=== PATIENT | female | born 1970 | race Caucasian/White ===

== ENCOUNTER → 2017-05-23 | Outpatient (CLI) | payer BC ==
--- NOTE | 2017-05-28 17:41 | REPMRS ---
Patient History The patient states she had a clinical breast exam in April 2017. Patient had first child at age 36. Family history of breast cancer in maternal grandmother at age 50 or over and endometrial cancer in paternal grandmother at age 50 or over. Digital Mammo Screening Bilat: May 23, 2017 - Exam #: [id number] Bilateral CC and MLO view(s) were taken. Technologist: Ale Marquez, Technologist Prior study comparison: September 2015, digital bilateral screening mammo, performed at [facility]. FINDINGS: There are scattered fibroglandular densities. There has been no change in the appearance of the mammogram from the prior studies. There is a moderate amount of residual fibroglandular tissue which is fairly symmetric. There is no interval development of dominant mass, architectural distortion, or clustered microcalcification suggestive of malignancy. Scattered lymph nodes are seen in the left axilla. There are scattered, small, benign calcifications of doubtful clinical significance. No significant changes when compared with prior studies. ASSESSMENT: BI-RADS/ACR category 2 mammogram. Benign finding(s). Recommendation Routine screening mammogram in 1 year (for women over age 40). This mammogram was interpreted with the aid of an FDA-approved computer-aided dectection system. A. Negative x-ray reports should not delay biopsy if a dominant or clinically suspicious mass is present. B. Four to eight percent of cancers are not identified by mammography. C. Adenosis and dense breast may obscure an underlying neoplasm. Electronically Signed By: Stevo Montoya MD 05/28/17 [id number]
== END ==
LOC: M RAD 10:52
PROVIDERS: ATTEND Obstetrics & Gynecology
DX: Z12.31 Encounter for screening mammogram for malignant neoplasm of breast (principal)

== ENCOUNTER → 2018-05-29 | Outpatient (CLI) | payer BC | LOC: M RAD 10:57 | DX: Z12.31 Encounter for screening mammogram for malignant neoplasm of breast (principal) | CPT/HCPCS: 77067 ==

== ENCOUNTER → 2019-07-15 | Outpatient (CLI) | payer BC ==
--- NOTE | 2019-07-15 14:23 | REPMRS ---
Patient History The patient states she had a clinical breast exam in 05/2019. Patient is postmenopausal and had first child at age 36. Family history of breast cancer at age 50 or over in maternal grandmother, endometrial cancer at age 50 or over in paternal grandmother. Taking unspecified hormones for 2 years. Digital Woman Screen Mammo: July 15, 2019 - Exam #: [id number] Bilateral CC and MLO view(s) were taken. Technologist: Aditi Kelley, Technologist Prior study comparison: May 29, 2018, bilateral digital mammo screening bilat, performed at [facility]. May 23, 2017, bilateral digital mammo screening bilat, performed at [facility]. FINDINGS: The breast tissue is heterogeneously dense. This may lower the sensitivity of mammography. There is a moderate amount of heterogeneously dense fibroglandular tissue which is fairly symmetric. There is no interval development of dominant mass, architectural distortion, or grouped microcalcification typical of malignancy. There has been no change in the appearance of the mammogram from the prior studies. 3-D tomosynthesis shows no additional findings. Assessment: BI-RADS/ACR category 1 mammogram. Negative Mammogram. Recommendation Routine screening mammogram of both breasts in 1 year (for women over age 40). This patient's Lifetime Breast Cancer RIsk is estimated at 18.6 %. This mammogram was interpreted with the aid of an FDA-approved computer-aided dectection system. Electronically Signed By: Luis Miguel Ryan MD 07/15/19 [id number]
== END ==
LOC: M WHC 12:46
PROVIDERS: ATTEND Obstetrics & Gynecology
DX: Z12.31 Encounter for screening mammogram for malignant neoplasm of breast (principal); Z13.820 Encounter for screening for osteoporosis; Z78.0 Asymptomatic menopausal state; Z92.29 Personal history of other drug therapy

== ENCOUNTER → 2020-07-17 | Outpatient (CLI) | payer BC ==
--- NOTE | 2020-07-17 14:16 | REPMRS ---
Patient History The patient states she had a clinical breast exam in May 2020.Family history of breast cancer at age 50 or over in maternal grandmother, endometrial cancer at age 50 or over in paternal grandmother. Taking unspecified hormones for 2 years. Digital Woman Screen Mammo: July 17, 2020 - Exam #: [id number] Bilateral CC and MLO view(s) were taken. Technologist: Mary Burnett, Technologist Prior study comparison: July 15, 2019, bilateral digital woman screen mammo performed at [facility] [place]. May 29, 2018, bilateral digital mammo screening bilat, performed at [facility]. May 23, 2017, bilateral digital mammo screening bilat, performed at [facility]. FINDINGS: There are scattered fibroglandular densities. The Volpara volumetric breast density category is:B. There has been no change in the appearance of the mammogram from the prior studies. There is a mild amount of scattered fibroglandular density which is fairly symmetric. There is no interval development of dominant mass, architectural distortion, or grouped microcalcification suggestive of malignancy. 3-D tomosynthesis shows no additional findings. Assessment: BI-RADS/ACR category 1 mammogram. Negative Mammogram. Recommendation Routine screening mammogram of both breasts in 1 year (for women over age 40). This patient's [facility] Lifetime Breast Cancer Risk is estimated at 18.3 %. This mammogram was interpreted with the aid of an FDA-approved computer-aided dectection system. Electronically Signed By: Luis Miguel Ryan MD 07/17/20 [id number]
== END ==
LOC: M WHC 12:54
PROVIDERS: ATTEND Advanced Practice Midwife
DX: Z12.31 Encounter for screening mammogram for malignant neoplasm of breast (principal); Z79.899 Other long term (current) drug therapy